=== PATIENT | female | born 1950 | race African-American/Black ===

== ENCOUNTER 2023-07-28 12:06 | Emergency (ER) | payer MEDICAID, MEDICARE, OTHER ==
[~2023-07-28] VITALS: Ht 160 cm; Wt 59.0 kg
[~2023-07-28 12:06] MED LIST: LOSA50TA41 PO
[2023-07-28 12:11] VITALS: O2SAT 100
[2023-07-28 13:07] VITALS: TEMP 98.3
[2023-07-28 13:16] LABS: BASOPHILS % 0.9 % (0.0-2.0); EOSINOPHILS % 2.1 % (0.0-5.0); HEMOGLOBIN. 12.5 g/dL (12.0-16.0); LYMPHOCYTES % 29.1 % (20.0-50.0); MEAN CORPUSCULAR HEMOGLOBIN 27.8 pg (28.0-32.0); MEAN CORPUSCULAR HGB CONC 32.9 g/dL (31.0-37.0); MEAN CORPUSCULAR VOLUME 84.5 fL (81.0-99.0); MEAN PLATELET VOLUME 7.6 fl (7.4-10.4); MONOCYTES % 5.6 % (2.0-8.0); NEUTROPHILS % 62.3 % (40.0-76.0); PLATELET 253 x1000/uL (130-400); RED CELL DISTRIBUTION WIDTH 13.5 % (11.6-14.6); WHITE BLOOD COUNT 4.8 x1000/uL (4.5-11.0)
[2023-07-28] MEDS ORDERED: MECLIZINE 25MG TABLET PO ONE (13:30)
[2023-07-28] MEDS ORDERED: MECLIZINE 12.5MG TABLET PO NR (13:45)
[2023-07-28 14:23] LABS: INDEX HEMOLYSI 1 (1-3); INDEX ICTERIC 1 (1-4); INDEX LIPEMIC 1 (1-3)
[2023-07-28 14:46] LABS: CARBON DIOXIDE 27 mEq/L (21-32); CHLORIDE 107 mEq/L (98-107); POTASSIUM 3.8 mEq/L (3.5-5.1); SODIUM 138 mEq/L (136-145)
[2023-07-28 14:47] LABS: ALANINE AMINOTRANSFERASE 37 IU/L (13-61); ALBUMIN 3.6 g/dL (3.4-5.0); ASPARTATE AMINOTRANSFERASE 30 IU/L (15-37); BILIRUBIN TOTAL 0.5 mg/dL (0.1-1.0); CALCIUM 9.1 mg/dL (8.5-10.1); CREATININE 0.9 mg/dL (0.6-1.3); GLUCOSE 92 mg/dL (70-105); PROTEIN TOTAL 8.1 g/dL (6.0-8.3); UREA NITROGEN BLOOD 15 mg/dL (7-21)
[2023-07-28 14:48] LABS: NT PRO B-TYPE NATRIURETIC PEP 27 pg/mL (5-125); TROPONIN I HIGH SENSITIVITY < 4 ng/L (<54)
[2023-07-28] MEDS ORDERED: MECL-299 MT (15:02)
[2023-07-28 15:17] VITALS: BP 137/64; PULSE 80; RESP 19
== END 2023-07-28 15:32 | disposition home or self-care (01) ==
LOC: ER 12:06
DX: R42 Dizziness and giddiness (principal); E78.00 Pure hypercholesterolemia, unspecified; Z88.2 Allergy status to sulfonamides; Z91.018 Allergy to other foods; Z98.890 Other specified postprocedural states
CPT/HCPCS: 99285; 70450; 71045; 80053; 83880; 85025; 84484; 36415; 93005; J8597